=== PATIENT | male | born 1940 | race Caucasian/White ===

== ENCOUNTER 2016-09-22 02:48 | Observation (INO) | payer MEDICARE, BC ==
[2016-09-22] VITALS (14 sets, daily range): BP systolic 112–155; BP diastolic 58–83; PULSE 75–110; RESP 15–22; TEMP 96.9–98.9; O2SAT 92–96
[~2016-09-22] VITALS: Ht 193 cm; Wt 107.0 kg
[2016-09-22] MEDS ORDERED: LEVO25TA39 PO (02:59)
[2016-09-22] MEDS ORDERED: ADVA100A INH (02:59)
[2016-09-22] MEDS ORDERED: IPRAAER INH (02:59)
[2016-09-22] MEDS ORDERED: ASPIRIN 325 MG TAB PO ONE (03:00)
[2016-09-22] MEDS ORDERED: CLOP75TA PO (03:00)
[2016-09-22] MEDS ORDERED: SIMV5TAB3 PO (03:00)
[2016-09-22] MEDS ORDERED: FLUO10CA5 PO (03:00)
[2016-09-22 03:06] LABS: HEMATOCRIT 44.8 % (39.0-51.0); MEAN CORPUSCULAR HEMOGLOBIN 28.7 PG (27.0-34.0); PLATELET COUNT 259 TH/MM3 (150-450); RED BLOOD COUNT 5.14 MIL/MM3 (4.50-5.90); RED CELL DISTRIBUTION WIDTH 16.3 % (11.6-17.2); WHITE BLOOD COUNT 20.3 TH/MM3 (4.0-11.0)
[2016-09-22 03:11] LABS: HEMO FLAGS AUTO DIFF
[2016-09-22] MEDS ORDERED: RESP: ALBUTEROL 2.5 MG/IPRATROPIUM 0.5 MG NEB (SCH) INH ONE (03:15)
[2016-09-22 03:19] LABS: APTT (PATIENT) 33.6 SEC (24.3-30.1); PROTHROMBIN TIME - PATIENT 11.1 SEC (9.8-11.6)
--- NOTE | 2016-09-22 03:24 | PD ---
HPI Chief Complaint: Pain: Acute or Chronic Time Seen by Provider: 02:54 Travel History International Travel<30 days: No Contact w/Intl Traveler<30days: No Traveled to known affect area: No History of Present Illness HPI Patient is a 76-year-old male with history of hyperlipidemia, COPD, CVA 5 years ago currently on Plavix, presents to emergency room with complaints of chest pain. Patient reports that he was watching TV around 11 PM tonight, reports that began having pain to his right shoulder which radiated to his left shoulder. Reports that shortly thereafter, he began to have left sided chest pain. Patient describes this pain as a sharp and stabbing sensation which is exacerbated by taking a deep breath. Patient reports that he has never had chest pain in the past, reports no history of hyperlipidemia or CAD and does not see a inspector canned food reconditioning. Patient does admit to a 1 pack per day smoking history. Patient reports that he recently came from [facility] in the beginning of August and has been traveling throughout [place] the past month. Reports no fevers or chills, denies any cough or congestion. No history of PE or DVT. PFSH Past Medical History Hx Anticoagulant Therapy: Yes Anxiety: Yes High Cholesterol: Yes Cerebrovascular Accident: Yes Coronary Artery Disease: Yes Diminished Hearing: No Respiratory: Yes Thyroid Disease: Yes Tetanus Vaccination: Unknown Influenza Vaccination: Yes Past Surgical History Surgical History: No Previous Surgery Social History Alcohol Use: No Tobacco Use: Yes Substance Use: No Allergies-Medications (Allergen,Severity, Reaction): Coded Allergies: Penicillin (Verified Allergy, Intermediate, 09/22/16) Reported Meds & Prescriptions Reported Meds & Active Scripts Active Reported Fluoxetine (Fluoxetine HCl) 10 Mg Cap 10 Mg PO DAILY Clopidogrel (Clopidogrel Bisulfate) 75 Mg Tab 75 Mg PO DAILY Simvastatin 5 Mg Tab 5 Mg PO DAILY Levoxyl (Levothyroxine Sodium) 25 Mcg Tab 25 Mcg PO DAILY Advair Diskus Inh (Fluticasone-Salmeterol Inh) 100-50 Mcg/Blist Aer 1 Puff INH BID Rinse mouth after use. Combivent Respimat Inh (Ipratropium-Albuterol Inh) 20-100 Jail/Act Aero 1 Puff INH QID Review of Systems General / Constitutional: No: Fever Eyes: No: Visual changes HENT: No: Headaches Cardiovascular: Positive: Chest Pain or Discomfort Respiratory: Positive: Shortness of Breath, No: Cough Gastrointestinal: No: Abdominal Pain Genitourinary: No: Dysuria Musculoskeletal: No: Pain Skin: No Rash Neurologic: No: Weakness Psychiatric: No: Depression Endocrine: No: Polydipsia Hematologic/Lymphatic: No: Easy Bruising Physical Exam Narrative GENERAL: Moderate distress SKIN: Focused skin assessment warm/dry. HEAD: Atraumatic. Normocephalic. EYES: Pupils equal and round. No scleral icterus. No injection or drainage. ENT: No nasal bleeding or discharge. Mucous membranes pink and moist. NECK: Trachea midline. No JVD. CARDIOVASCULAR: Regular rate and rhythm. No murmur appreciated. RESPIRATORY: No accessory muscle use. Clear to auscultation. Breath sounds equal bilaterally. GASTROINTESTINAL: Abdomen soft, non-tender, nondistended. Hepatic and splenic margins not palpable. MUSCULOSKELETAL: No obvious deformities. No clubbing. No cyanosis. No edema. NEUROLOGICAL: Awake and alert. No obvious cranial nerve deficits. Motor grossly within normal limits. Normal speech. PSYCHIATRIC: Patient anxious on exam Data Data Last Documented VS Vital Signs Date Time Temp Pulse Resp B/P Pulse Ox O2 Delivery O2 Flow Rate FiO2 09/22/16 05:13 90 18 139/67 95 09/22/16 04:47 Nasal Cannula 2 09/22/16 03:15 21 09/22/16 03:01 98.4 Orders Electrocardiogram (09/22/16 02:54) B-Type Natriuretic Peptide (09/22/16 02:54) Ckmb (Isoenzyme) Profile (09/22/16 02:54) Complete Blood Count With Diff (09/22/16 02:54) Comprehensive Metabolic Panel (09/22/16 02:54) Magnesium (Mg) (09/22/16 02:54) Prothrombin Time / Inr (Pt) (09/22/16 02:54) Act Partial Throm Time (Ptt) (09/22/16 02:54) Troponin I (09/22/16 02:54) Ecg Monitoring (09/22/16 02:54) Iv Access Insert/Monitor (09/22/16 02:54) Oximetry (09/22/16 02:54) Chest, Single Ap (09/22/16 ) Aspirin (Aspirin) (09/22/16 03:00) Albuterol-Ipratropium Neb (Duoneb Neb) (09/22/16 03:15) Ct Pulmonary Angiogram (09/22/16 03:24) Sodium Chlor 0.9% 1000 Ml Inj (Ns 1000 M (09/22/16 03:30) Electrocardiogram (09/22/16 ) CKMB (09/22/16 03:10) CKMB% (09/22/16 03:10) Influenzae A/B Antigen (09/22/16 04:08) Blood Culture (09/22/16 04:08) Lactic Acid Sepsis Protocol (09/22/16 04:08) Lorazepam Inj (Ativan Inj) (09/22/16 04:30) Morphine Inj (Morphine Inj) (09/22/16 04:30) Ondansetron Inj (Zofran Inj) (09/22/16 04:30) Iohexol 350 Inj (Omnipaque 350 Inj) (09/22/16 05:23) Labs Laboratory Tests Test 09/22/16 09/22/16 09/22/16 09/22/16 02:56 03:10 03:30 04:00 White Blood Count 20.3 TH/MM3 Red Blood Count 5.14 MIL/MM3 Hemoglobin 14.8 GM/DL Hematocrit 44.8 % Mean Corpuscular Volume 87.0 FL Mean Corpuscular Hemoglobin 28.7 PG Mean Corpuscular Hemoglobin 33.0 % Concent Red Cell Distribution Width 16.3 % Platelet Count 259 TH/MM3 Mean Platelet Volume 8.5 FL Neutrophils (%) (Auto) % Lymphocytes (%) (Auto) % Monocytes (%) (Auto) % Eosinophils (%) (Auto) % Basophils (%) (Auto) % Neutrophils # (Auto) TH/MM3 Lymphocytes # (Auto) TH/MM3 Monocytes # (Auto) TH/MM3 Eosinophils # (Auto) TH/MM3 Basophils # (Auto) TH/MM3 CBC Comment AUTO DIFF Differential Total Cells 100 Counted Neutrophils % (Manual) 31 % Band Neutrophils % 1 % Lymphocytes % 21 % Monocytes % 46 % Eosinophils % 1 % Neutrophils # (Manual) 6.5 TH/MM3 Differential Comment FINAL DIFF MANUAL Platelet Estimate NORMAL Platelet Morphology Comment NORMAL Red Cell Morphology Comment NORMAL Prothrombin Time 11.1 SEC Prothromb Time International 1.0 RATIO Ratio Activated Partial 33.6 SEC Thromboplast Time Sodium Level 138 MEQ/L Potassium Level 4.2 MEQ/L Chloride Level 101 MEQ/L Carbon Dioxide Level 29.7 MEQ/L Anion Gap 7 MEQ/L Blood Urea Nitrogen 18 MG/DL Creatinine 0.88 MG/DL Estimat Glomerular Filtration 84 ML/MIN Rate Random Glucose 115 MG/DL Calcium Level 8.7 MG/DL Magnesium Level 2.0 MG/DL Total Bilirubin 0.4 MG/DL Aspartate Amino Transf 17 U/L (AST/SGOT) Alanine Aminotransferase 17 U/L (ALT/SGPT) Alkaline Phosphatase 44 U/L Total Creatine Kinase 157 U/L Creatine Kinase MB 6.2 NG/ML Troponin I LESS THAN 0.02 NG/ML Total Protein 7.8 GM/DL Albumin 3.5 GM/DL B-Type Natriuretic Peptide 38 PG/ML Lactic Acid Level 0.9 mmol/L MDM Medical Decision Making Medical Screen Exam Complete: Yes Emergency Medical Condition: Yes Interpretation(s) EKG at 0246: Normal sinus rhythm at 85 bpm, QT/QTc 398/441, right bundle branch block EKG at 0326: Normal sinus rhythm at 84bpm, qt/qtc: 396/438, rbbb, pvc's Vital Signs Date Time Temp Pulse Resp B/P Pulse Ox O2 Delivery O2 Flow Rate FiO2 09/22/16 03:04 83 18 09/22/16 03:04 18 94 Room Air 09/22/16 03:01 98.4 83 18 155/76 94 Differential Diagnosis ACS, arrhythmia, PE, pneumothorax, pneumonia Narrative Course Patient is a 76 year old male with hx of hyperlipidemia, CVA, presents to emergency room with complaints of chest pain. Patient reports that chest began around 11 PM tonight, reports that pain started in his right shoulder and radiates to his left shoulder to his left chest, patient of a sharp and stabbing pain to his left chest worse with taking deep inspiration. Patient was placed on a monitor car operator upon arrival to emergency room. EKG obtained, patient was given a aspirin Labs as well as x-ray of the chest ordered. Patient was hypoxic upon presentation to emergency room with a pulse ox of 94% on room air, patient was placed on oxygen, patient reports that he is not on home O2 wbc 20.3 chest xray: Interstitial lung disease greater in the lower lungs CT angiogram of the chest ordered to evaluate for possible PE as he is hypoxic on evaluation in continuously complaining of shortness of breath with deep inspiration CBC & BMP Diagram 09/22/16 02:56 09/22/16 03:[address] of chest as he reports that he is too short of breath and too anxious and in too much pain to lay down for this study, patient was ordered ativan as well as medication for pain. Discussed concerns for possible PE given his recent long car ride from [facility] to [place] and also with his smoking history makes him higher risk for PE. Patient agreeable to studies after he was medicated. Last Impressions CT Angiography 09/22/16 0324 Signed Impressions: Service Date/Time: Thursday, September 22, 2016 04:56 - CONCLUSION: 1. No evidence for pulmonary embolism. 2. Rounded confluence ground glass density in the left upper lobe/perihilar region measuring 3.0 x 1.8 x [address] chest in 3 months recommended for stability. An outpatient PET CT scan also may be warranted. 3. 5 mm nodule in the anterior left upper lobe. 4. Emphysema without infiltrate. 5. Enlargement of the pulmonary arteries consistent with pulmonary arterial hypertension. 6. Calcified left-sided thyroid nodules. 7. Multiple low-density liver lesions likely cysts, however many are too small to characterize. Reji Baker MD Chest X-Ray 09/22/16 0000 Signed Impressions: Service Date/Time: Thursday, September 22, 2016 03:46 - CONCLUSION: Interstitial lung disease greater in the lower lungs. Reji Baker MD Upon further discussion with patient's , patient has a long-standing history of COPD, reports that he is supposed to be on home oxygen but refuses to use this and reports that he has sent his home oxygen tank back in the past. They do have a home pulse oximeter and reports that his pulse ox is normally around 91-92% at baseline. I did review CT report with patient's and patient in detail, understands all concerning findings and understands need for repeat CT of the chest in 3 months. A copy of patient's CT report was given to patient's . Plan to admit patient for chest pain observation case reviewed with dr chun who accepts pt to service Critical Care Narrative Aggregate critical care time was 45 minutes. Time to perform other separately billable procedures was not included in the critical care time. My time did not include minutes spent treating any other patients simultaneously or on activities that did not directly contribute to the patient's treatment. The services I provided to this patient were to treat and/or prevent clinically significant deterioration that could result in: , decompensation, deterioration I provided critical care services requiring my management, as noted below: Chart data review, documentation time, medication orders and management, vital sign assessments/reviewing monitor data, ordering and reviewing lab tests, ordering and interpreting/reviewing x-rays and diagnostic studies, care of the patient and discussion of the patient with the admitting physicians. Diagnosis Primary Impression: Chest pain Qualified Code: R07.9 - Chest pain, unspecified type Additional Impressions: Hypoxia Lung mass Leukocytosis Qualified Code: D72.829 - Leukocytosis, unspecified type Bronchitis Admitting Information Admitting Physician Requests: Dee Roe DO Sep 22, 2016 03:24
[2016-09-22 03:28] LABS: CHLORIDE 101 MEQ/L (98-107); POTASSIUM 4.2 MEQ/L (3.5-5.1); SODIUM (NA) 138 MEQ/L (136-145)
[2016-09-22 03:30] LABS: BANDS 1 % (0-6); EOSINOPHILS 1 % (0-4); NEUTROPHIL # MANUAL DIFF 6.5 TH/MM3 (1.8-7.7); POLYS (SEG NEUTROPHILS) 31 % (16-70); WBC DIFF SAMPLE 100
[2016-09-22] MEDS ORDERED: SODIUM CHLOR 0.9% 1000 ML INJ 1,000 ML IV ONE (03:30)
[2016-09-22 03:32] LABS: ANION GAP 7 MEQ/L (5-15); BICARBONATE 29.7 MEQ/L (21.0-32.0); BLOOD UREA NITROGEN 18 MG/DL (7-18)
[2016-09-22 03:33] LABS: PLATELET ESTIMATE SMEAR NORMAL (NORMAL); PLATELET MORPHOLOGY NORMAL (NORMAL); SCAN/DIFF FINAL DIFF MANUAL
[2016-09-22 03:35] LABS: ALT (GPT) 17 U/L (12-78); AST (GOT) 17 U/L (15-37); GLOMERULAR FILTRATION RATE 84 ML/MIN (>89)
[2016-09-22 03:37] LABS: TOTAL BILIRUBIN ADULT 0.4 MG/DL (0.2-1.0)
[2016-09-22 03:38] LABS: ALKALINE PHOSPHATASE 44 U/L (45-117); CREATINE KINASE 157 U/L (39-308)
[2016-09-22 03:50] LABS: CKMB 6.2 NG/ML (0.5-3.6)
--- NOTE | 2016-09-22 04:03 | RADHPO ---
EXAM DATE/TIME: 09/22/2016 03:46 [facility] COMPARISON: No previous studies available for comparison. INDICATIONS : Chest pain. MEDICAL HISTORY : Chronic obstructive pulmonary disease. SURGICAL HISTORY : Skull fracture ENCOUNTER: Initial ACUITY: 1 day PAIN SCORE: 8/10 LOCATION: Bilateral chest FINDINGS: A single view of the chest demonstrates chronic interstitial changes greater in the lower lobes. Slig ht elevation right hemidiaphragm. Heart normal in size The cardiomediastinal contours are unremarkabl e. Osseous structures are intact. CONCLUSION: Interstitial lung disease greater in the lower lungs. Reji Baker MD on September 22, 2016 at 4:01 Board Certified Radiologist. This report was verified electronically.
[2016-09-22] MEDS ORDERED: MORPHINE SULFATE 4 MG/ML INJ IV PUSH ONE (04:30)
[2016-09-22] MEDS ORDERED: LORazepam 2 MG/ML VIAL IV PUSH ONE (04:30)
[2016-09-22] MEDS ORDERED: ONDANSETRON HCL 4 MG/2 ML VIAL IV PUSH ONE (04:30)
[2016-09-22] MEDS ORDERED: IOHEXOL 350 MG/ML 10 ML VIAL (for RAD DIAG) IV ONE (05:23)
--- NOTE | 2016-09-22 05:39 | RADHPO ---
EXAM DATE/TIME: 09/22/2016 04:56 [facility] COMPARISON: CHEST SINGLE AP, September 22, 2016, 3:46. INDICATIONS : Left chest pain and difficulty breathing. IV CONTRAST: 75 cc Omnipaque 350 (iohexol) IV RADIATION DOSE: 18.31 CTDIvol (mGy) MEDICAL HISTORY : Cardiovascular disease. Cerebrovascular disease. Respiratory disease. SURGICAL HISTORY : None. ENCOUNTER: Initial ACUITY: 1 day PAIN SCALE: 8/10 LOCATION: Left chest TECHNIQUE: Volumetric scanning of the chest was performed using a pulmonary embolism protocol MIP images were re constructed. Using automated exposure control and adjustment of the mA and/or kV according to patien t size, radiation dose was kept as low as reasonably achievable to obtain optimal diagnostic quality images. FINDINGS: PULMONARY ARTERIES: No filling defects are seen in the pulmonary arteries through the segmental level. LUNGS: There is mild centrilobular and paraseptal emphysema. There is a rounded confluence area of groundgla ss density in the left upper lobe perihilar region measuring 3.0 x 1.8 x 2.0 cm. There is a 5 mm nodu le in the anterior left upper lobe. PLEURAE: There is no pleural thickening or pleural effusion. MEDIASTINUM: There is good visualization of the great vessels of the middle mediastinum. Small scattered lymph nod es none of which are pathologically enlarged. Enlargement of the pulmonary trunk measuring 3.7 cm con sistent pulmonary arterial hypertension. MUSCULOSKELETAL: Within normal limits for patient age. MISCELLANEOUS: Multiple low density lesions in liver. Calcified left thyroid nodules. CONCLUSION: 1. No evidence for pulmonary embolism. 2. Rounded confluence ground glass density in the left upper lobe/perihilar region measuring 3.0 x 1. 8 x [address] chest in 3 months recommended for stability. An outpatient PET CT scan also m ay be warranted. 3. 5 mm nodule in the anterior left upper lobe. 4. Emphysema without infiltrate. 5. Enlargement of the pulmonary arteries consistent with pulmonary arterial hypertension. 6. Calcified left-sided thyroid nodules. 7. Multiple low-density liver lesions likely cysts, however many are too small to characterize. Reji Baker MD on September 22, 2016 at 5:30 Board Certified Radiologist. This report was verified electronically.
[2016-09-22] MEDS ORDERED: SODIUM CHLORIDE 0.9% FLUSH 10 ML FLUSH IV FLUSH PRN (06:30)
[2016-09-22] MEDS ORDERED: NALOXONE HCL 0.4 MG/ML AMP IV PRN (06:30)
[2016-09-22] MEDS: RESP: ALBUTEROL 2.5 MG/IPRATROPIUM 0.5 MG NEB (SCH) NEB ×4 (07:23→19:20)
[2016-09-22 07:49] LABS: CREATINE KINASE 140 U/L (39-308)
[2016-09-22] MEDS: SODIUM CHLORIDE 0.9% FLUSH 10 ML FLUSH IV FLUSH SCH ×2 (09:00→21:45)
--- NOTE | 2016-09-22 11:33 | EKG ---
Date Performed: 09/22/2016 Time Performed: 03:26:04 PTAGE: 76 years EKG: Sinus rhythm with PVC(s) Right bundle branch block Abnormal ECG PREVIOUS TRACING : 09/22/2016 02.46 DOCTOR: Edward Coombs Interpretating Date/Time 09/22/2016 11:31:45
--- NOTE | 2016-09-22 11:34 | EKG ---
Date Performed: 09/22/2016 Time Performed: 02:46:06 PTAGE: 76 years EKG: Sinus rhythm . Right bundle branch block Abnormal ECG NO PREVIOUS TRACING DOCTOR: Edward Coombs Interpretating Date/Time 09/22/2016 11:32:38
[2016-09-22] MEDS ORDERED: FUROSEMIDE 20 MG/2 ML VIAL IV PUSH ONE (13:30)
[2016-09-22 14:12] LABS: BLOOD GAS BASE EXCESS 4.8 mmol/L (-2-2); BLOOD GAS CARBOXYHEMOGLOBIN 2.7 % (0-4); BLOOD GAS HCO3 30 mmol/L (22-26); BLOOD GAS METHEMOGLOBIN 1.1 % (0-2); BLOOD GAS O2 HGB SATURATION 85 % (90-100); BLOOD GAS OXYGEN CONTENT 15.7 Vol % (12.0-20.0); BLOOD GAS PCO2 55 mmHG (38-42); BLOOD GAS PO2 57 mmHG (61-120); BLOOD GAS TOTAL HGB 13.1 G/DL (12.0-16.0); TEMP CORR TO 98.6
[2016-09-22 14:13] LABS: CRITICAL VALUE YES; DRAW SITE RT RADIAL; FIO2 21 %; NUMBER OF ARTERIAL PUNCTURES 1; STAT NO; ULNAR PULSE PRESENT
--- NOTE | 2016-09-22 14:30 | HHI.HP ---
[facility] Service [facility] Primary Care Physician Non-Staff Admission Diagnosis chest pain, bronchitis Diagnoses: (1) Chest pain Diagnosis: Principal (2) Leukocytosis Diagnosis: Principal (3) Monocytosis Diagnosis: Principal (4) Lung mass Diagnosis: Principal (5) Hypoxia Diagnosis: Principal (6) Hyperlipidemia Diagnosis: Secondary (7) History of CVA (cerebrovascular accident) Diagnosis: Secondary (8) Chronic obstructive pulmonary disease Diagnosis: Secondary Chief Complaint: Chest pain Travel History International Travel<30 Days: No Contact w/Intl Traveler <30 Da: No Traveled to Known Affected Are: No History of Present Illness 76-year-old male with known history of hyperlipidemia, history of CVA with right sided residual symptoms, tobacco use who presented to hospital because acute onset of chest pain. The patient resides in [place] is down here visiting for a month in [place]. Patient was in his normal state of health until early this morning at 2 AM when he developed sudden onset of discomfort. It was indicated the patient had chest discomfort across the anterior chest and radiating around to each shoulder. This is worsened whenever he takes a deep breath. There was no associated nausea, vomiting, diaphoresis. The patient having difficulty in giving any information at this time. Patient appears to have decreased level consciousness whether due to morphine use or possible hypercapnia. Information was mainly taken from at bedside. Patient had multiple abnormal findings with workup in emergency department to include leukocytosis of 20,300 with prominent monocytes. Chest CT which indicate significant pulmonary artery dilatation, pulmonary hypertension findings, left lung mass. Is recommended patient be observed in the hospital for further recommendations. Upon further questioning the . She indicates that the patient has had workup done of his lungs in the past and indicates that he has had findings that would represent scar tissue. The patient does continue to smoke cigarettes and has significant chronic affective pulmonary disease. He is supposed to be on oxygen, however he does not want to use it and he took the machine back. Patient has known about abnormalities of his chest ever since he had his stroke 5 years ago. Review of Systems ROS Limitations: Poor Historian, Other (medicated, information taken from ) Constitutional: DENIES: Diaphoretic episodes, Fatigue, Fever, Weight gain, Weight loss, Chills, Dizziness, Change in appetite, Night Sweats Ears, nose, mouth, throat: DENIES: Vertigo, Nasal discharge, Throat pain, Ear Pain, Running Nose, Sinus Pain Respiratory: DENIES: Apneas, Cough, Snoring, Wheezing, Hemoptysis, Sputum production, Shortness of breath Cardiovascular: COMPLAINS OF: Chest pain, Lower Extremity Edema, DENIES: Palpitations, Syncope, Dyspnea on Exertion, Orthopnea Gastrointestinal: DENIES: Abdominal pain, Black stools, Bloody stools, Constipation, Diarrhea, Nausea, Vomiting, Difficulty Swallowing, Anorexia Neurologic: COMPLAINS OF: Localized weakness Past Family Social History Past Medical History Hyperlipidemia History CVA with right sided residual Chronic obstructive pulmonary disease Chronic respiratory failure, supposed to be on home oxygen Chronic tobacco use Hypothyroidism Past Surgical History No previous surgeries Reported Medications Reported Meds & Active Scripts Active Reported Fluoxetine (Fluoxetine HCl) 10 Mg Cap 10 Mg PO DAILY Clopidogrel (Clopidogrel Bisulfate) 75 Mg Tab 75 Mg PO DAILY Simvastatin 5 Mg Tab 5 Mg PO DAILY Levoxyl (Levothyroxine Sodium) 25 Mcg Tab 25 Mcg PO DAILY Advair Diskus Inh (Fluticasone-Salmeterol Inh) 100-50 Mcg/Blist Aer 1 Puff INH BID Rinse mouth after use. Combivent Respimat Inh (Ipratropium-Albuterol Inh) 20-100 Halfway/Act Aero 1 Puff INH QID Allergies: Coded Allergies: Penicillin (Verified Allergy, Intermediate, 09/22/16) Social History Patient continues smoke a pack a cigarettes a day since he was 15 years old. No indication of any alcohol or illicit drugs Physical Exam Vital Signs Vital Signs Date Time Temp Pulse Resp B/P Pulse Ox O2 Delivery O2 Flow Rate FiO2 09/22/16 12:18 98.6 75 18 125/74 96 09/22/16 09:17 98.0 85 15 120/65 92 09/22/16 07:25 93 Nasal Cannula 2.00 09/22/16 07:20 82 16 112/58 93 Nasal Cannula 2 09/22/16 06:34 84 18 136/68 95 09/22/16 05:13 90 18 139/67 95 09/22/16 04:47 84 20 137/66 93 Nasal Cannula 2 09/22/16 03:52 86 20 132/67 92 Room Air 09/22/16 03:15 93 21 09/22/16 03:04 83 18 09/22/16 03:04 18 94 Room Air 09/22/16 03:01 98.4 83 18 155/76 94 Physical Exam GENERAL: Well-developed, well-nourished, in no acute distress. alert and somnolent HEENT: Head is normocephalic without any lesions or masses noted. Facial features are symmetric. Eyes: Pupils equal round reactive to light. Extraocular muscles are intact. Conjunctivae were clear. Oropharyngeal: Pharynx without any erythema edema. Tongue is midline without deviation. Buccal mucosa is moist without any masses or lesions NECK: Supple without any masses. Trachea midline no deviation. No JVD, no bruits are appreciated CARDIAC: Regular rhythm, regular rate. S1/S2 are heard. No murmurs gallops or rubs. LUNGS: Coarse crackles noted bilaterally. No wheeze, rhonchi. No use of accessory muscles on inspiration or expiration. ABDOMEN: Soft, nontender. Nondistended. Bowel sounds heard in all 4 quadrants. No organomegaly or masses. Negative rebound, negative guarding EXTREMITIES: No edema, pulses are equal bilaterally. No cyanosis or clubbing NEUROLOGY: Mood and affect appear appropriate. Cranial nerves II through XII grossly intact. Muscle strength 5/5 in upper and lower extremities bilaterally. Deep tendon reflexes are 2+ in upper and lower extremities bilaterally. Laboratory Laboratory Tests Test 09/22/16 09/22/16 09/22/16 09/22/16 02:56 03:10 03:30 04:00 White Blood Count 20.3 Red Blood Count 5.14 Hemoglobin 14.8 Hematocrit 44.8 Mean Corpuscular Volume 87.0 Mean Corpuscular Hemoglobin 28.7 Mean Corpuscular Hemoglobin 33.0 Concent Red Cell Distribution Width 16.3 Platelet Count 259 Mean Platelet Volume 8.5 Neutrophils (%) (Auto) Lymphocytes (%) (Auto) Monocytes (%) (Auto) Eosinophils (%) (Auto) Basophils (%) (Auto) Neutrophils # (Auto) Lymphocytes # (Auto) Monocytes # (Auto) Eosinophils # (Auto) Basophils # (Auto) CBC Comment AUTO DIFF Differential Total Cells 100 Counted Neutrophils % (Manual) 31 Band Neutrophils % 1 Lymphocytes % 21 Monocytes % 46 Eosinophils % 1 Neutrophils # (Manual) 6.5 Differential Comment FINAL DIFF MANUAL Platelet Estimate NORMAL Platelet Morphology Comment NORMAL Red Cell Morphology Comment NORMAL Blood Smear Pathologist Review Prothrombin Time 11.1 Prothromb Time International 1.0 Ratio Activated Partial 33.6 Thromboplast Time Sodium Level 138 Potassium Level 4.2 Chloride Level 101 Carbon Dioxide Level 29.7 Anion Gap 7 Blood Urea Nitrogen 18 Creatinine 0.88 Estimat Glomerular Filtration 84 Rate Random Glucose 115 Calcium Level 8.7 Magnesium Level 2.0 Total Bilirubin 0.4 Aspartate Amino Transf 17 (AST/SGOT) Alanine Aminotransferase 17 (ALT/SGPT) Alkaline Phosphatase 44 Total Creatine Kinase 157 Creatine Kinase MB 6.2 Troponin I LESS THAN 0.02 Total Protein 7.8 Albumin 3.5 B-Type Natriuretic Peptide 38 Lactic Acid Level 0.9 Test 09/22/16 07:18 Total Creatine Kinase 140 Troponin I LESS THAN 0.02 Date/Time Procedure Status Source Growth 09/22/16 04:25 Influenza Types A,B Antigen (KEERTHI) - Final Complete Nasal Aspirate NEGATIVE FOR FLU A AND B ANTIGEN.... 09/22/16 04:08 Aerobic Blood Culture Received Blood Peripheral Pending 09/22/16 04:08 Anaerobic Blood Culture Received Blood Peripheral Pending Result Diagram: 09/22/16 0256 09/22/[address] Angiography 09/22/16 0324 Signed Impressions: Service Date/Time: Thursday, September 22, 2016 04:56 - CONCLUSION: 1. No evidence for pulmonary embolism. 2. Rounded confluence ground glass density in the left upper lobe/perihilar region measuring 3.0 x 1.8 x [address] chest in 3 months recommended for stability. An outpatient PET CT scan also may be warranted. 3. 5 mm nodule in the anterior left upper lobe. 4. Emphysema without infiltrate. 5. Enlargement of the pulmonary arteries consistent with pulmonary arterial hypertension. 6. Calcified left-sided thyroid nodules. 7. Multiple low-density liver lesions likely cysts, however many are too small to characterize. Reji Baker MD Chest X-Ray 09/22/16 0000 Signed Impressions: Service Date/Time: Thursday, September 22, 2016 03:46 - CONCLUSION: Interstitial lung disease greater in the lower lungs. Reji Baker MD Assessment and Plan Assessment and Plan //Chest pain, pleuritic in nature: Could be secondary to lung mass, pleurisy Thus far patient ruled out for any acute coronary event with serial cardiac enzymes which are negative. Continue to trend cardiac enzymes Serial EKGs show right bundle block without any changes We'll need to continue pain control //Chronic respiratory failure with hypoxia with underlying chronic obstructive pulmonary disease Blood gas pH 7.36, PCO2 55, PO2 57, bicarbonate 30, O2 saturation 85% Titrate O2 supplementation maintain O2 sats greater than 92% Duo nebs Incentive spirometry //Leukocytosis with prominent monocytes Consult hematology for further recommendations //Left lung mass Etiology is recommends close follow-up in 3 months Hematology/oncology consulted for above, appreciate recommendations for lung mass Pencil Maker consulted for further recommendations //History of CVA with right sided residuals Continue home medications //Hyperlipidemia Continue statin //Hypothyroidism Continue home medications //DVT prevention Sequential compression devices Written by Nasim Barillas PA-C, acting as scribe for Dr. Valerio on 09/22/16 at 1330. All or portions of this note were transcribed by scribe [Nasim Barillas PA-C] . I, Dr. Santo Valerio personally performed the history, physical exam, and medical decision making; and confirmed the accuracy of the information in the transcribed note. Authenticated by Dr. Santo Valerio on 09/22/16 at 17:38. Problem Qualifiers (1) Chest pain: Qualified Code: R07.9 - Chest pain, unspecified type (2) Leukocytosis: Qualified Code: D72.829 - Leukocytosis, unspecified type (3) Chronic obstructive pulmonary disease: Qualified Code: J44.9 - Chronic obstructive pulmonary disease, unspecified COPD type Nasim Barillas Sep 22, 2016 14:30 Santo Valerio MD Sep 22, 2016 17:38
[2016-09-22 17:00] LABS: CREATINE KINASE 173 U/L (39-308)
--- NOTE | 2016-09-22 19:04 | MB ---
cc: SHALONDA BARILLAS RUBY ANNE E. M.D. DATE OF CONSULTATION 09/22/16 DATE OF 1940 REFERRING PHYSICIAN Shalonda Barillas CHIEF COMPLAINT Shalondaivis Jensenon requested consultation for MR. Edwards regarding CT scan abnormalities concerning for lung cancer. HISTORY OF PRESENT ILLNESS Mr. Edwards is a 76-year-old [place]. He has a history of hyperlipidemia, COPD, CVA with residual right-sided weakness. He is originally from [facility] and is staying in the [facility] until the end of September. He denies any injury or exertion. He developed chest pain while watching TV. He had pain in his shoulder, in the right that radiated to the left. He presented to the emergency room because of chest pain. He was ruled out with three negative enzymes. He reports that his chest pain was actually better at the time of the consultation. Because of his chest pain a CT angiogram was performed. There is no evidence of pulmonary embolism. The findings, however, showed a rounded confluent ground-glass density in the left upper lobe and perihilar region measuring 3 x 1.8 x 2.0 cm. In addition, there is a 5 mm nodule anterior left upper lobe. Ms. Edwards describes that he has had the spots in his lung ever since he came back from [place]. He has had biopsies of it twice. He is followed by a his of primary care physician back home every year or two with CT scans of the chest and there has been no progression. He denies any other symptoms such as weight loss, fevers, chills or night sweats. He has no worsening symptoms of cough or congestion. REVIEW OF SYSTEMS His more current complaint is inability to urinate well. He has difficulty starting. He describes it is hard to go. He denies a prior history of benign prostatic hypertrophy. He denies any burning in urination, just the difficulty in going. He has some residual right-sided weakness. He has some peripheral vision loss from his CVA. He has had no recurrent stroke after his recovery and continued antiplatelet therapy with Plavix. He has no other venous thromboembolic events. No headaches. Appetite is good. The rest of his review of systems is negative. PAST MEDICAL HISTORY CVA, COPD, hyperlipidemia, anxiety, coronary artery disease, hypothyroidism. PAST SURGICAL HISTORY No previous surgeries. SOCIAL HISTORY Smokes a few cigarettes per day and has been doing so since coming back from service. He has no intention of quitting at this point. He denies any alcohol or illicit drug use. ALLERGIES ALLERGIES TO PENICILLIN. CURRENT MEDICATIONS 1. Plavix. 2. Prozac. 3. Pravachol. 4. Synthroid. 5. Symbicort. 6. DuoNebs. 7. Morphine p.r.n. PHYSICAL EXAMINATION VITAL SIGNS: Temperature 98.9, heart rate 98, respiratory rate 15, blood pressure 131/69, saturation 94%. GENERAL: Mr. Edwards is well-developed, well-nourished elderly man who looks his stated age. HEENT: His pupils are roound, reactive to light and accommodation. Oropharynx is clear. NECK: Neck is supple. LUNGS: Clear to auscultation. CARDIOVASCULAR: Exam reveals normal rate, rhythm. ABDOMEN: Abdomen is benign. EXTREMITIES: Lower extremity with trace edema. NEUROLOGIC EXAMINATION: Slight weakness in the right upper arm as opposed to the left. FAMILY HISTORY Family history is noncontributory. No family history of cancer. LABORATORY DATA BUN, creatinine are normal. CBC with mild leukocytosis. White blood cell count 20,000 with 46% monocytes ASSESSMENT/PLAN Mr. Edwards is a 76-year-old man with multiple medical problems described above. He is in the [facility] for another month and returns back to [place]. He has physicians established in [place] who follows up for his other medical problems. He is admitted for chest pain. He has been worked up and cardiac cause has been excluded. He appears to be improved with pain medication. During his workup he is found to have lung abnormality. He reports that these lung abnormalities are chronic, have been there for many years. I recommend no specific therapy. He plans to follow up with his primary physician [facility]. He reports that these lung abnormalities have been there for many years and he has no symptoms. We discussed the possibility using low-dose CT scan for screening. He is encouraged to stop smoking altogether since he only smokes a few cigarettes per day. We discussed his symptoms of benign prostatic hypertrophy. We can start him a small dose of Cardura to see if this improves his urinary symptoms. His creatinine is stable. We will monitor his response on this medication. We discussed that optimal response will probably take several weeks. He can continue to follow up with his primary physician. Lastly, he has leukocytosis, predominately monocytes. Monocytosis may be associated with inflammation or infection. However, he has no overt infection. We consider in differential chronic myelomonocytic leukemia. He has no other cytopenias. No specific therapy is required at present. He is advised to follow up also his primary physician regarding his monocytosis. Diagnosis of bone marrow disorder can be confirmed with his primary physician when he returns in a month's time. No specific therapy is required for the monocytosis as he is asymptomatic. Jill Ly MD RAD/EO /6:10 PM /6:36 PM MTDOctavio
[2016-09-22] MEDS: DOXAZOSIN MESYLATE 1 MG TAB PO SCH (21:45)
[2016-09-22] MEDS: BUDESONIDE-FORMOTEROL 80/4.5 MCG INHALER INH SCH (21:45)
[2016-09-22] MEDS: ACETAMINOPHEN/HYDROcodone 325 MG/5 MG TAB PO PRN (22:27)
[2016-09-23] VITALS (7 sets, daily range): BP systolic 105–125; BP diastolic 57–69; PULSE 77–92; RESP 18–21; TEMP 96.9–97.9; O2SAT 88–96
[2016-09-23] MEDS: ACETAMINOPHEN/HYDROcodone 325 MG/5 MG TAB PO PRN ×5 (02:38→23:43)
[2016-09-23] MEDS ORDERED: LEVOTHYROXINE SODIUM 25 MCG TAB PO SCH (06:00)
[2016-09-23 06:32] LABS: HEMATOCRIT 38.6 % (39.0-51.0); MEAN CELL VOLUME 88.3 FL (80.0-100.0); MEAN CORPUSCULAR HEMOGLOBIN 29.7 PG (27.0-34.0); MEAN CORPUSCULAR HGB CONC 33.6 % (32.0-36.0); PLATELET COUNT 199 TH/MM3 (150-450); RED BLOOD COUNT 4.37 MIL/MM3 (4.50-5.90); RED CELL DISTRIBUTION WIDTH 15.2 % (11.6-17.2); WHITE BLOOD COUNT 24.5 TH/MM3 (4.0-11.0)
[2016-09-23 06:43] LABS: POTASSIUM 4.1 MEQ/L (3.5-5.1)
[2016-09-23 06:48] LABS: BICARBONATE 31.3 MEQ/L (21.0-32.0); MAGNESIUM 2.1 MG/DL (1.5-2.5)
[2016-09-23 06:55] LABS: HEMO FLAGS AUTO DIFF
[2016-09-23] MEDS: RESP: ALBUTEROL 2.5 MG/IPRATROPIUM 0.5 MG NEB (SCH) NEB ×4 (07:19→20:16)
[2016-09-23 08:15] LABS: NEUTROPHIL # MANUAL DIFF 8.6 TH/MM3 (1.8-7.7); PLATELET ESTIMATE SMEAR NORMAL (NORMAL); PLATELET MORPHOLOGY NORMAL (NORMAL); POLYS (SEG NEUTROPHILS) 35 % (16-70); SCAN/DIFF FINAL DIFF MANUAL; WBC DIFF SAMPLE 100
[2016-09-23] MEDS: SODIUM CHLORIDE 0.9% FLUSH 10 ML FLUSH IV FLUSH SCH ×2 (09:00→21:11)
--- NOTE | 2016-09-23 09:04 | EC ---
Study Study Date:09/22/2016 STUDY CONCLUSIONS SUMMARY - Left ventricle: The cavity size was normal. Wall thickness was at the upper limits of normal. Systolic function was mildly reduced. The estimated ejection fraction was 50%, in the range of 45% to 50%. Wall motion was normal; there were no regional wall motion abnormalities. - Mitral valve: Mildly calcified annulus. - Pulmonary arteries: Systolic pressure was mildly increased. PA peak pressure: 49mm Hg (S). - Pericardium, extracardiac: A trivial pericardial effusion was identified. If LV function is below 40, please consider prescribing an ACEI or ARB or document rationale for non-use. PROCEDURE DATA STUDY STATUS: Elective. Procedure: Transthoracic echocardiography. Image quality was good. Scanning was performed from the parasternal, apical, and subcostal acoustic windows. Study completion: The patient tolerated the procedure well. Transthoracic echocardiography. M-mode, complete 2D, complete spectral Doppler, and color Doppler. Patient status: Inpatient. CARDIAC ANATOMY LEFT VENTRICLE: The cavity size was normal. Wall thickness was at the upper limits of normal. Systolic function was mildly reduced. The estimated ejection fraction was 50%, in the range of 45% to 50%. Wall motion was normal; there were no regional wall motion abnormalities. AORTIC VALVE: Trileaflet; mildly thickened leaflets. Doppler: Transvalvular velocity was within the normal range. There was no stenosis. No regurgitation. AORTA: Aortic root: The aortic root was normal in size. MITRAL VALVE: Mildly calcified annulus. Doppler: Transvalvular velocity was within the normal range. There was no evidence for stenosis. No regurgitation. LEFT ATRIUM: The atrium was normal in size. RIGHT VENTRICLE: The cavity size was normal. Wall thickness was normal. PULMONIC VALVE: Doppler: Transvalvular velocity was within the normal range. There was no evidence for stenosis. No regurgitation. TRICUSPID VALVE: Structurally normal valve. Doppler: Transvalvular velocity was within the normal range. Trace to mild regurgitation. PULMONARY ARTERY: The main pulmonary artery was normal-sized. Systolic pressure was mildly increased. RIGHT ATRIUM: The atrium was normal in size. PERICARDIUM: A trivial pericardial effusion was identified. SYSTEMIC VEINS: Inferior vena cava: The vessel was normal in size. BASIC MEASUREMENTS ADULT Normal Left ventricle LV internal dimension, ED, chordal level, 45.4 mm 43-52 PLAX LV internal dimension, ES, chordal level, 32.7 mm 23-38 PLAX Fractional shortening, chordal level, PLAX *28 % >29 LV posterior wall thickness, ED 10.9 mm IVS/LVPW ratio, ED *1.43 <1.3 Ventricular septum Septal thickness, ED 15.6 mm Aortic valve Leaflet separation 16 mm 15-26 Right ventricle RV internal dimension, ED, PLAX 34.2 mm 19-38 BASIC MEASUREMENTS ADULT Normal Aortic valve Leaflet separation 16 mm 15-26 Aorta Root diameter, ED *39 mm 20-37 Left atrium Anterior-posterior dimension, ES 38 mm 19-40 LA/aortic root ratio 0.97 DOPPLER MEASUREMENTS ADULT Normal Main pulmonary artery Pressure, S *49 mm Hg =30 Mitral valve Peak E-wave velocity 56.3 cm/s Peak A-wave velocity 80 cm/s Peak E/A ratio 0.7 Tricuspid valve Regurgitant peak velocity 314 cm/s Peak RV-RA gradient, S 39 mm Hg Maximal regurgitant velocity 314 cm/s Systemic veins Estimated CVP 10 mm Hg Right ventricle RV pressure, S *49 mm Hg <30 LEGEND: Mean values are shown as u=mean value. Asterisk (*) snyder values outside specified normal range. Prepared and signed by Raji Sewell [id number]
[2016-09-23] MEDS: BUDESONIDE-FORMOTEROL 80/4.5 MCG INHALER INH SCH ×2 (09:15→21:11)
[2016-09-23] MEDS: PRAVASTATIN SOD 10 MG TAB PO SCH (09:16)
[2016-09-23] MEDS: CLOPIDOGREL 75 MG TAB PO SCH (09:16)
[2016-09-23] MEDS: FLUoxetine HCL 10 MG CAP PO SCH (09:16)
[2016-09-23 10:11] LABS: BLOOD, URINE LARGE (NEG); GLUCOSE,URINE NEG (NEG); KETONE, URINE TRACE mg/dL (NEG); NITRITE,URINE NEG (NEG); PH, URINE 5.5 (5.0-8.5)
[2016-09-23 10:29] LABS: METHOD OF COLLECTION CATH; URINE COLOR YELLOW (YELLW/STRAW)
[2016-09-23 10:30] LABS: BACTERIA, URINE FEW /hpf; COMMENT (UR) CATH-CULTURE IND; CULTURE IF INDICATED CATH CULTURE IND; SQUAMOUS EPITHELIAL CELL URINE 0-5 /hpf (0-5)
--- NOTE | 2016-09-23 11:00 | EKG ---
Date Performed: 09/22/2016 Time Performed: 16:15:46 PTAGE: 76 years EKG: CONSIDER ACUTE ST ELEVATION PA Sinus tachycardia with PAC(s) Right bundle branch bl ock Lateral ST elevation, CONSIDER ACUTE INFARCT Abnormal ECG PREVIOUS TRACING : 09/22/2016 03.26 DOCTOR: Perry Quijano Interpretating Date/Time 09/23/2016 10:58:40
--- NOTE | 2016-09-23 12:17 | EKG ---
Date Performed: 09/22/2016 Time Performed: 07:05:26 PTAGE: 76 years EKG: Sinus rhythm Right bundle branch block Abnormal ECG PREVIOUS TRACING : 09/22/2016 03.26 DOCTOR: Perry Quijano Interpretating Date/Time 09/23/2016 12:16:08
--- NOTE | 2016-09-23 13:10 | HHI.PR ---
Subjective Remarks Patient seen and examined today multiple times with Dr. Valerio. Patient rather cantankerous today. Patient is micro-managing his care, indicating test which he will do and what he won't do. Patient states that he still having pain whenever he takes deep breath. Dr. Valerio educated him on deep breathing exercises and the use of incentive spirometry. After the exercises the pain did improve and the patient is able take a deeper breath. Patient was counseled extensively on his medical conditions, possible underlying malignancy/ leukemia. Him and his do understand the ramifications, however, the patient states that he is not going to follow-up with anyone down here in [place]. That he is going to wait until he goes back to [place] at the beginning of next month. It was indicated the patient has had some urinary retention, he is had catheterizations done twice and he indicates that he has had pain on urination since then. Objective Vitals Vital Signs Date Time Temp Pulse Resp B/P Pulse Ox O2 Delivery O2 Flow Rate FiO2 09/23/16 11:55 3.00 09/23/16 10:24 20 09/23/16 08:00 97.2 89 21 112/57 93 09/23/16 07:31 2.00 09/23/16 07:19 95 Nasal Cannula 3.00 09/23/16 00:00 97.9 77 20 105/63 94 09/22/16 20:00 96.9 110 22 137/83 94 09/22/16 20:00 94 Nasal Cannula 2.00 09/22/16 19:21 93 09/22/16 17:30 98.9 98 15 131/69 94 I/O 09/22/16 09/22/16 09/22/16 09/23/16 09/23/16 09/23/16 07:00 15:00 23:00 07:00 15:00 23:00 Intake Total 1020 ml 60 ml Output Total 850 ml 300 ml Balance 170 ml -240 ml Intake Oral 1020 ml 60 ml Output Urine Total 850 ml 300 ml Bladder Scan Volume Amount 930 ml 159 ml # Voids 2 # Bowel Movements 0 0 Result Diagram: 09/23/16 0525 09/23/16 0525 Objective Remarks GENERAL: Well-developed, well-nourished, in no acute distress. alert and orientated HEENT: Head is normocephalic without any lesions or masses noted. Facial features are symmetric. Eyes: NECK: Supple without any masses. Trachea midline no deviation. No JVD, CARDIAC: Regular rhythm, regular rate. S1/S2 are heard. No murmurs gallops or rubs. LUNGS: Clear auscultation bilaterally. No wheeze, rhonchi or rales. No use of accessory muscles on inspiration or expiration. Mild blunting on inspiration ABDOMEN: Soft, nontender. Nondistended. Bowel sounds heard in all 4 quadrants. No organomegaly or masses. Negative rebound, negative guarding EXTREMITIES: No edema, pulses are equal bilaterally. No cyanosis or clubbing NEUROLOGY: Mood and affect appear appropriate. Cranial nerves II through XII grossly intact. Moving all extremities, speech is clear Urinary Catheter: No Vascular Central Line Catheter: No A/P Assessment and Plan //Chest pain, pleuritic in nature: Could be secondary to lung mass, pleurisy Thus far patient ruled out for any acute coronary event with serial cardiac enzymes which are negative. Continue to trend cardiac enzymes Serial EKGs show right bundle block without any changes We'll need to continue pain control //Chronic respiratory failure with hypoxia with underlying chronic obstructive pulmonary disease Blood gas pH 7.36, PCO2 55, PO2 57, bicarbonate 30, O2 saturation 85% Titrate O2 supplementation maintain O2 sats greater than 88% Duo nebs Incentive spirometry Patient had home oxygen study performed which he does qualify for home oxygen with resting O2 saturation 87%., However patient refuses to use oxygen. He states that he will not go home on oxygen. 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 However since the patient is not have any overt infection. Consideration for chronic myelomonocytic leukemia. He was advised to follow-up with his primary medical doctor within a month's time for diagnosis of bone marrow disorder. //Left lung mass Etiology is recommends close follow-up in 3 months Hematology/oncology evaluated the patient. Patient does not want to have any workup done here in [place]. Oncologists indicated that they do not recommend any specific therapy here. Continue plan to follow-up primary medical physician in [place] and possible using low-dose CT scanning for screening. Head Refrigeration Engineer consulted for further recommendations //Urinary retention, unknown etiology could be secondary to enlarged prostate, outlet obstruction, narcotic induced Bladder scans performed which only indicated 175 cc of urine Hematology started patient on Cardura, due to signs of benign prostatic hypertrophy Awaiting PSA Urinalysis shows hematuria, however this could be trauma due to straight catheterization 2 //History of CVA with right sided residuals Continue home medications //Hyperlipidemia Continue statin //Hypothyroidism Continue home medications //DVT prevention Sequential compression devices Written by Nasim Barillas PA-C, acting as scribe for Dr. Valerio on 09/23/16 at 1130. All or portions of this note were transcribed by scribe [Nasim Barillas PA-C] . I, Dr. Santo Valerio personally performed the history, physical exam, and medical decision making; and confirmed the accuracy of the information in the transcribed note. Authenticated by Dr. Santo Valerio on 09/24/16 at 10:41. Discharge Planning Discharge home in stable condition Activity: Ad cindy. Diet: Healthy heart diet Medications per medication reconciliation Follow-up primary medical doctor in one week Nasim Barillas Sep 23, 2016 13:10 Santo Valerio MD Sep 24, 2016 10:44
[2016-09-23] MEDS ORDERED: LIDOCAINE HCL 5% PATCH T-DERMAL ONE (14:30)
[2016-09-23] MEDS ORDERED: KETOROLAC TROMETHAMINE 30 MG/ML (IVP) VIAL IV PUSH ONE (14:30)
[2016-09-23] MEDS ORDERED: KETOROLAC TROMETHAMINE 60 MG/2 ML (IM) VIAL IM PRN (17:15)
[2016-09-23] MEDS: DOXAZOSIN MESYLATE 1 MG TAB PO SCH (21:11)
[2016-09-23] MEDS ORDERED: MAGNESIUM HYDROXIDE SUSP 30 ML CUP PO PRN (22:00)
[2016-09-23] MEDS ORDERED: ALUMINUM/MAGNESIUM/SIMETH 30 ML CUP PO PRN (22:00)
[2016-09-23] MEDS ORDERED: ACETAMINOPHEN 325 MG TAB PO PRN (22:00)
[2016-09-23] MEDS ORDERED: DOCUSATE SODIUM 100 MG CAP PO PRN (22:00)
[2016-09-23] MEDS ORDERED: ONDANSETRON HCL 4 MG/2 ML VIAL IV PRN (22:00)
[2016-09-23] MEDS ORDERED: CALCIUM CARBONATE 500 MG CHEWABLE TAB CHEW PRN (22:00)
[2016-09-24] VITALS: BP 97/60; PULSE 85; RESP 18; TEMP 97.8; O2SAT 96
[2016-09-24] MEDS ORDERED: LEVOTHYROXINE SODIUM 25 MCG TAB PO SCH (06:00)
[2016-09-24] MEDS: RESP: ALBUTEROL 2.5 MG/IPRATROPIUM 0.5 MG NEB (SCH) NEB ×3 (07:28→15:33)
[2016-09-24 07:30] VITALS: O2SAT 94
[2016-09-24 08:00] VITALS: BP 99/69; PULSE 95; RESP 18; TEMP 97; O2SAT 92
[2016-09-24] MEDS ORDERED: SODIUM CHLOR 0.9% 1000 ML INJ 1,000 ML IV SCH (08:00)
[2016-09-24 08:18] LABS: HEMATOCRIT 35.5 % (39.0-51.0); MEAN CELL VOLUME 88.8 FL (80.0-100.0); MEAN CORPUSCULAR HEMOGLOBIN 30.5 PG (27.0-34.0); MEAN CORPUSCULAR HGB CONC 34.3 % (32.0-36.0); PLATELET COUNT 171 TH/MM3 (150-450); RED CELL DISTRIBUTION WIDTH 14.8 % (11.6-17.2); WHITE BLOOD COUNT 23.7 TH/MM3 (4.0-11.0)
[2016-09-24 08:24] LABS: HEMO FLAGS AUTO DIFF
[2016-09-24 08:29] LABS: BICARBONATE 29.1 MEQ/L (21.0-32.0)
[2016-09-24 08:44] LABS: BANDS 5 % (0-6); NEUTROPHIL # MANUAL DIFF 9.2 TH/MM3 (1.8-7.7); PLATELET ESTIMATE SMEAR NORMAL (NORMAL); PLATELET MORPHOLOGY NORMAL (NORMAL); POLYS (SEG NEUTROPHILS) 34 % (16-70); SCAN/DIFF FINAL DIFF MANUAL; WBC DIFF SAMPLE 100
[2016-09-24] MEDS: CLOPIDOGREL 75 MG TAB PO SCH (08:48)
[2016-09-24] MEDS: SODIUM CHLORIDE 0.9% FLUSH 10 ML FLUSH IV FLUSH SCH (08:48)
[2016-09-24] MEDS: BUDESONIDE-FORMOTEROL 80/4.5 MCG INHALER INH SCH (08:48)
[2016-09-24] MEDS: FLUoxetine HCL 10 MG CAP PO SCH (08:48)
[2016-09-24] MEDS: PRAVASTATIN SOD 10 MG TAB PO SCH (08:48)
[2016-09-24] MEDS ORDERED: FLUO20CA4 PO (08:53)
[2016-09-24] MEDS ORDERED: ADVA250A INH (08:54)
[2016-09-24] MEDS ORDERED: SIMV20TA PO (08:55)
[2016-09-24] MEDS ORDERED: LEVO125T4 PO (08:56)
[2016-09-24 11:20] VITALS: O2SAT 95
[2016-09-24] MEDS ORDERED: TAMSULOSIN HCL 0.4 MG CAP PO SCH (11:30)
[2016-09-24 12:00] VITALS: BP 123/77; PULSE 97; RESP 20; TEMP 98.1; O2SAT 93
[2016-09-24] MEDS: ACETAMINOPHEN/HYDROcodone 325 MG/5 MG TAB PO PRN ×2 (12:29→17:40)
[2016-09-24] MEDS ORDERED: LIDOCAINE 2% JELLY 30 ML TUBE TOPICAL ONE (13:00)
[2016-09-24] MEDS ORDERED: HYDR-3516 PO (14:14)
[2016-09-24] MEDS ORDERED: CIPROFLOXACIN 250 MG TAB PO SCH (14:15)
[2016-09-24] MEDS ORDERED: TAMS5CAP PO (14:24)
[2016-09-24] MEDS ORDERED: CIPR250T52 PO (14:24)
--- NOTE | 2016-09-24 14:25 | HHI.FF ---
Face to Face Verification Diagnosis: (1) Hypoxia (2) Lung mass (3) Urinary retention Physical Therapy Order: Evaluate and Treat, Improve ambulation, Strength and gait training Home Health Nursing Order: Medical education Signs/symptoms of disease process Nursing assessment with vital signs Dick catheter maintenance I have seen patient Jaron Edwards on 09/24/16. My clinical findings support the need for the requested home health care services because: Patient has SOB I certify that my clinical findings support that this patient is homebound because: Hx COPD- exertion dyspnea/weakness Nasim Barillas Sep 24, 2016 14:25 Grabiel Chauhan MD Sep 24, 2016 16:49
[2016-09-24] MEDS ORDERED: OXYGENTANK NAS.CANULA (14:47)
--- NOTE | 2016-09-24 15:11 | HHI.DS ---
Discharge Summary Admission Date Sep 22, 2016 at 06:19 Discharge Date: Sep 24, 2016 Admitting Diagnosis chest pain, bronchitis (1) Chest pain ICD Code: R07.9 Diagnosis: Principal (2) Leukocytosis ICD Code: D72.829 Diagnosis: Principal (3) Monocytosis ICD Code: D72.821 Diagnosis: Principal (4) Lung mass ICD Code: R91.8 Diagnosis: Principal (5) Hypoxia ICD Code: R09.02 Diagnosis: Principal (6) Hyperlipidemia ICD Code: E78.5 Diagnosis: Secondary (7) History of CVA (cerebrovascular accident) ICD Code: Z86.73 Diagnosis: Secondary (8) Chronic obstructive pulmonary disease ICD Code: J44.9 Diagnosis: Secondary (9) Urinary retention ICD Code: R33.9 Procedures None Brief History - From Admission 76-year-old male with known history of hyperlipidemia, history of CVA with right sided residual symptoms, tobacco use who presented to hospital because acute onset of chest pain. The patient resides in [place] is down here visiting for a month in [place]. Patient was in his normal state of health until early this morning at 2 AM when he developed sudden onset of discomfort. It was indicated the patient had chest discomfort across the anterior chest and radiating around to each shoulder. This is worsened whenever he takes a deep breath. There was no associated nausea, vomiting, diaphoresis. The patient having difficulty in giving any information at this time. Patient appears to have decreased level consciousness whether due to morphine use or possible hypercapnia. Information was mainly taken from at bedside. Patient had multiple abnormal findings with workup in emergency department to include leukocytosis of 20,300 with prominent monocytes. Chest CT which indicate significant pulmonary artery dilatation, pulmonary hypertension findings, left lung mass. Is recommended patient be observed in the hospital for further recommendations. Upon further questioning the . She indicates that the patient has had workup done of his lungs in the past and indicates that he has had findings that would represent scar tissue. The patient does continue to smoke cigarettes and has significant chronic affective pulmonary disease. He is supposed to be on oxygen, however he does not want to use it and he took the machine back. Patient has known about abnormalities of his chest ever since he had his stroke 5 years ago. CBC/BMP: 09/24/16 0749 09/24/16 0749 Significant Findings Laboratory Tests Test 09/22/16 09/22/16 09/22/16 09/22/16 02:56 03:10 07:18 14:05 White Blood Count 20.3 TH/MM3 (4.0-11.0) Monocytes % 46 % (0-8) Activated Partial 33.6 SEC Thromboplast Time (24.3-30.1) Estimat Glomerular Filtration 84 ML/MIN (>89) Rate Random Glucose 115 MG/DL (74-106) Alkaline Phosphatase 44 U/L (45-117) Creatine Kinase MB 6.2 NG/ML (0.5-3.6) Troponin I LESS THAN 0.02 LESS THAN 0.02 NG/ML NG/ML (0.02-0.05) (0.02-0.05) Blood Gas HCO3 30 mmol/L (22-26) Blood Gas Base Excess 4.8 mmol/L (-2-2) Blood Gas Oxygen Saturation 85 % (90-100) Arterial Blood pH 7.36 (7.380-7.420) Arterial Blood Partial 55 mmHG (38-42) Pressure CO2 Arterial Blood Partial 57 mmHG Pressure O2 (61-120) Test 09/22/16 09/23/16 09/23/16 09/24/16 16:15 05:25 10:00 07:49 Troponin I LESS THAN 0.02 NG/ML (0.02-0.05) Thyroid Stimulating Hormone 0.347 uIU/ML 3rd Gen (0.358-3.740) White Blood Count 24.5 TH/MM3 23.7 TH/MM3 (4.0-11.0) (4.0-11.0) Red Blood Count 4.37 MIL/MM3 4.00 MIL/MM3 (4.50-5.90) (4.50-5.90) Hematocrit 38.6 % 35.5 % (39.0-51.0) (39.0-51.0) Monocytes % 55 % (0-8) 51 % (0-8) Neutrophils # (Manual) 8.6 TH/MM3 9.2 TH/MM3 (1.8-7.7) (1.8-7.7) Blood Urea Nitrogen 25 MG/DL (7-18) 27 MG/DL (7-18) Estimat Glomerular Filtration 73 ML/MIN (>89) 76 ML/MIN (>89) Rate Urine Protein 30 mg/dL (NEG-TRACE) Urine Ketones TRACE mg/dL (NEG) Urine Occult Blood LARGE (NEG) Urine RBC 50-99 /hpf (0-3) Urine WBC 50-99 /hpf (0-5) Urine Bacteria FEW /hpf (NONE) Hemoglobin 12.2 GM/DL (13.0-17.0) Chloride Level 96 MEQ/L (98-107) Random Glucose 117 MG/DL (74-106) Imaging Last Impressions CT Angiography 09/22/16 0324 Signed Impressions: Service Date/Time: Thursday, September 22, 2016 04:56 - CONCLUSION: 1. No evidence for pulmonary embolism. 2. Rounded confluence ground glass density in the left upper lobe/perihilar region measuring 3.0 x 1.8 x [address] chest in 3 months recommended for stability. An outpatient PET CT scan also may be warranted. 3. 5 mm nodule in the anterior left upper lobe. 4. Emphysema without infiltrate. 5. Enlargement of the pulmonary arteries consistent with pulmonary arterial hypertension. 6. Calcified left-sided thyroid nodules. 7. Multiple low-density liver lesions likely cysts, however many are too small to characterize. Reji Baker MD Chest X-Ray 09/22/16 0000 Signed Impressions: Service Date/Time: Thursday, September 22, 2016 03:46 - CONCLUSION: Interstitial lung disease greater in the lower lungs. Reji Baker MD PE at Discharge GENERAL: Well-developed, well-nourished, in no acute distress. alert and orientated HEENT: Head is normocephalic without any lesions or masses noted. Facial features are symmetric. Eyes: NECK: Supple without any masses. Trachea midline no deviation. No JVD, CARDIAC: Regular rhythm, regular rate. S1/S2 are heard. No murmurs gallops or rubs. LUNGS: Clear auscultation bilaterally. No wheeze, rhonchi or rales. No use of accessory muscles on inspiration or expiration. Mild blunting on inspiration ABDOMEN: Soft, nontender. Nondistended. Bowel sounds heard in all 4 quadrants. No organomegaly or masses. Negative rebound, negative guarding EXTREMITIES: No edema, pulses are equal bilaterally. No cyanosis or clubbing NEUROLOGY: Mood and affect appear appropriate. Cranial nerves II through XII grossly intact. Moving all extremities, speech is clear Hospital Course 76 year-old male who recently presented to hospital because of left- sided chest discomfort. Patient had workup done emergency department found to have multiple abnormalities to include lung nodules, left lung mass, leukocytosis with prominent monocytes. Patient was admitted to the hospital to rule out cardiac etiology of chest discomfort. She did undergo serial cardiac enzymes remain negative, EKG showed right bundle branch block without any changes. Patient still had pruritic type chest pain whenever he took a deep breath. This was discussed with the patient that could be associated to the mass in his chest versus pleurisy. Because of his other findings hematology/ oncology was consulted who spent time with the patient and described his condition with the lung mass and indicated that patient could have outpatient follow-up with his primary medical doctor in [place] once he gets back there. He was also discussed with the patient that the patient could have chronic myelomonocytic leukemia and further workup can be done by his primary medical physician when he gets out of the hospital. During the patient's stay he did develop urinary retention which possibly could be secondary to benign prostatic hypertrophy, narcotic use, abdominal obstruction. Computer System Technician started the patient on Cardura without any significant relief. Patient did not want to have further straight cathetering performed. Patient did have over 600 cc of urine in his bladder today. A Dick was successfully placed by charge nurse today. Counseled patient extensively on Dick needed to be left in place with outpatient follow-up with urology. Patient was started on Flomax and Cardura was discontinued. Home health care will also be consulted for management of patient's Dick. Patient does have what appears be chronic respiratory failure , however he has returned home oxygen in the past. With further discussion with him today he is open to go home on oxygen today. Patient is clinically improved. Outpatient workup is being arranged and follow-up will be managed when he returns to [place]. Patient clinically stable this time. Will plan discharge accordingly with home health care. Pt Condition on Discharge: Stable Discharge Disposition: Disch w/ Home Health Serv Discharge Time: > 30 minutes Discharge Instructions DIET: Follow Instructions for: Heart Healthy Diet Activities you can perform: Regular-No Restrictions Activities to Avoid: Driving for 24 hrs Follow up Referrals: PCP Follow-up - 1 Week Urology - 1 Week New Medications: Oxygen tank (Oxygen tank) 1 Ea Tank 2 LITER JAZMIN.CANULA CONTINUOUS Oxygen Concentrator Portable Gaseous 2 L/min via Nasal Cannula Continuous For 99 months HYPOXEMIA PREVENTION #2 CYLINDER Ciprofloxacin (Cipro) 250 Mg Tab 250 MG PO Q12HR complicated UTI Days 10 TAB Hydrocodone-Acetaminophen (Hydrocodone-Acetaminophen) 5-325 mg Tab 1 TAB PO Q6HR PRN PAIN SCALE 1-5 #28 TAB Tamsulosin (Flomax) 0.4 Mg Cap 0.4 MG PO DAILY urinary retention Days 30 CAP Continued Medications: Clopidogrel (Clopidogrel) 75 Mg Tab 75 MG PO DAILY Blood Clot Prevention #30 Ref 0 TAB Fluoxetine (Fluoxetine) 20 Mg Cap 20 MG PO DAILY #30 Ref 0 CAP Fluticasone-Salmeterol Inh (Advair Diskus Inh) 250-50 Mcg/Blist Aer 1 PUFF INH BID Rinse mouth after use. #1 Ref 0 INHALER Ipratropium-Albuterol Inh (Combivent Respimat Inh) 20-100 Fdc/Act Aero 1 PUFF INH QID Asthma Management #1 Ref 0 INHALER Levothyroxine (Levothyroxine) 125 Mcg Tab 125 MCG PO DAILY Thyroid #30 Ref 0 TAB Simvastatin (Simvastatin) 20 Mg Tab 20 MG PO DAILY Cholesterol Management #30 Ref 0 TAB Additional Information Written by Nasim Barillas PA-C, acting as scribe for Dr. Chauhan on 09/24/16 at 1430. The documentation accurately reflects the work and decisions performed face-to- face by Dr. Chauhan on 09/24/16 at 1430. This note was transcribed by scribe Nasim Barillas PA-C, . I, Dr. Grabiel Chauhan personally performed the history, physical exam, and medical decision making; and confirmed the accuracy of the information in the transcribed note. Authenticated by Dr. Grabiel Chauhan on 09/24/16 at 16:51. Nasim Barillas Sep 24, 2016 15:11 Grabiel Chauhan MD Sep 24, 2016 16:51
[2016-09-24] MEDS ORDERED: SYNT112T PO (16:54)
--- NOTE | 2016-09-24 17:26 | MB ---
cc: CASIMIROCASIMIRO DATE OF CONSULTATION 09/24/16 REASON FOR CONSULTATION COPD, abnormal CT scan of the chest HISTORY OF PRESENT ILLNESS Mr. Edwards is a 76-year-old male who is a [place]. He does have multiple medical problems including chronic obstructive pulmonary disease, previous cerebrovascular accident with right-sided weakness. He presents to the emergency room with chest pain with negative findings including a CT angiogram without pulmonary embolism. However, a nonspecific density the left upper lung is noted measuring 3 x 2 x 2 cm. The patient had been given oxygen therapy several years ago, however. he refused the oxygen and returned it. He does have chronic shortness of breath, cough and expectoration using Advair twice a day and Combivent as needed. He denies history of fever, chills, hemoptysis. He was noted to have leukocytosis with a white count of 28,000, 46% monocyte and is followed by Dr. Ly for same. He did develop urinary retention while in the emergency room and a Dick catheter is in place. PAST MEDICAL HISTORY 1. Chronic obstructive pulmonary disease 2. Previous CVA 3. Hyperlipidemia, 4. Anxiety, 5. Coronary artery disease, 6. Hypothyroidism. PAST SURGICAL HISTORY No previous surgeries. SOCIAL HISTORY Smokes almost his entire adult life. He continues to smoke until the time of admission. Does not drink any alcohol. Does not use drugs. MEDICATIONS At home include 1. Advair twice daily. 2. Combivent as needed. 3. Plavix 4. Prozac 5. Pravachol 6. Synthroid. FAMILY HISTORY Noncontributory. REVIEW OF SYSTEMS A 12-point review of systems as per HPI and past history otherwise negative. PHYSICAL EXAMINATION VITAL SIGNS: Temperature 98.5, pulse 90, respirations 18, blood pressure 130/70, oxygen saturation 94% on 2 liters oxygen nasal cannula. HEENT: Exam unremarkable. Eyes without icterus. NECK: No adenopathy or thyroid enlargement. CHEST: Scattered rhonchi bilaterally decreased with cough. CARDIAC: PMI not appreciated. S1-S2 audible. 1/6 ejection systolic murmur left sternal border. ABDOMEN: Lax. Bowel sounds audible. EXTREMITIES: No clubbing, cyanosis or edema. LABORATORY DATA White count 09/24/16 23,000, hemoglobin 12, hematocrit 35, platelets 171,000. Sodium 136, potassium 4.0, BUN 27, creatinine 0.9, PSA at 2.2, TSH 0.34. IMAGING STUDIES CT angiogram - no PE, left upper lung lobe density as described above. IMPRESSION 1. Chronic obstructive pulmonary disease apparently of severe degree 2. Respiratory failure requiring oxygen therapy 3. Urinary retention 4. Leukocytosis 5. Hyperlipidemia 6. Status post cerebrovascular accident. PLAN 1. The patient will require oxygen therapy at present and this will be maintained upon discharge. 2. Neurologic evaluation for urinary retention would be appropriate 3. leukocytosis is being followed by hematology 4. Continue nebulization therapy while in the hospital. At home the patient is adamant about continuing his Advair twice a day and p.r.n. Combivent. He will not use a nebulizer. 5. Pulmonary function evaluation that would be appropriate He as in or outpatient. He is to be discharged a tapering course of prednisone and continue antibiotic therapy for seven more days would be appropriate. A followup CT scan of the chest in 2-3 months would be appropriate as well. However, the patient is leaving to go up [place] to follow up with his apprentice embalmer at that time. I do thank you for asking to partake in Mr. Edwards's care. Casimiro Kirkpatrick MD WWW/ /2:44 PM /5:03 PM
[2016-09-24] MEDS ORDERED: BUDESONIDE-FORMOTEROL 160/4.5 MCG INHALER INH SCH (21:00)
[2016-09-25] MEDS ORDERED: LEVOTHYROXINE SODIUM 112 MCG TAB PO SCH (06:00)
[2016-09-25] MEDS ORDERED: FLUoxetine HCL 20 MG CAP PO SCH (09:00)
[2016-09-25] MEDS ORDERED: PRAVASTATIN SOD 40 MG TAB PO SCH (09:00)
[2016-09-25] MEDS ORDERED: LEVOTHYROXINE SODIUM 125 MCG TAB PO SCH (09:00)
== END 2016-09-24 19:00 | disposition home or self-care (01) ==
LOC: PHED 02:48 → PHEDA 06:19 → PH3A 08:18
PROVIDERS: ADMIT Internal Medicine; ATTEND Internal Medicine
DX: R07.89 Other chest pain (principal); R33.9 Retention of urine, unspecified; R91.8 Other nonspecific abnormal finding of lung field; J44.9 Chronic obstructive pulmonary disease, unspecified; E78.5 Hyperlipidemia, unspecified; F41.9 Anxiety disorder, unspecified; E78.00 Pure hypercholesterolemia, unspecified; D72.829 Elevated white blood cell count, unspecified; D72.821 Monocytosis (symptomatic); E03.9 Hypothyroidism, unspecified; J96.11 Chronic respiratory failure with hypoxia; F17.210 Nicotine dependence, cigarettes, uncomplicated; I25.10 Atherosclerotic heart disease of native coronary artery without angina pectoris; Z88.0 Allergy status to penicillin; Z79.02 Long term (current) use of antithrombotics/antiplatelets
CPT/HCPCS: 36600; 71010; 71275; 80048; 80053; 81001; 82550; 82552; 82805; 83605; 83735; 83880; 84153; 84443; 84484; 85007; 85027; 85060; 85610; 85730; 87040; 87086; 87804; 93005; 93306; 94150; 94620; 94640; 94664; 96361; 96374; 96375; 99291; G0378; J1885; J1940; J2060; J2270; J2405; J7030; Q9967